=== PATIENT | female | born 1985 | race Caucasian/White ===

== ENCOUNTER → 2021-11-26 | Day surgery (SDC) | payer OTHER ==
[~2021-11-26] VITALS: Ht 160 cm; Wt 54.4 kg
[~2021-11-26] MED LIST: ALLERGY RELIEF10 M1 PO; LAMICTAL100 MG PO; NORVASC5 MG PO; PIRMELLA PO; PROBIOTIC1 EAC1 PO; PROTONIX 40MG T40 MG PO; VENTOLIN HFA18 GM INH; VITAMIN D325 MC2 PO; VRAYLAR3 MG PO; XANAX0.25 MG PO
[2021-11-26 10:21] LABS: HCG (URINE) SCREEN NEGATIVE (NEGATIVE)
[2021-11-26 11:38] LABS: BUN/CREAT RATIO (CALC) 15.2 RATIO; CREATININE 0.79 mg/dL (0.51-0.95); POTASSIUM 3.6 mmol/L (3.5-5.1)
== END | disposition home or self-care (01) ==
LOC: FAS 09:45
PROVIDERS: Anesthesiology
DX: L72.3 Sebaceous cyst (principal); J45.909 Unspecified asthma, uncomplicated; G40.909 Epilepsy, unspecified, not intractable, without status epilepticus; K21.9 Gastro-esophageal reflux disease without esophagitis; F17.200 Nicotine dependence, unspecified, uncomplicated; Z86.16 Personal history of COVID-19; Z88.5 Allergy status to narcotic agent; Z72.89 Other problems related to lifestyle; Z20.822 Contact with and (suspected) exposure to COVID-19
CPT/HCPCS: 36415; 80048; 84703; J1100; J1885; J2250; J2405; J3010; J7120